=== PATIENT | male | born 1970 | race Caucasian/White ===

== ENCOUNTER → 2024-07-05 11:30 | Outpatient (REF) | payer OTHER, SELFPAY | LOC: PAVMRI 11:30 | PROVIDERS: ATTENDING PHYSICIAN Physical Medicine & Rehabilitation; FAMILY PHYSICIAN Family Medicine | DX: M54.12 Radiculopathy, cervical region (principal) | CPT/HCPCS: 72141 ==

== ENCOUNTER → 2024-08-05 18:40 | Outpatient (REF) | payer OTHER, SELFPAY | LOC: RAD 18:40 | PROVIDERS: ATTENDING PHYSICIAN Physical Medicine & Rehabilitation; FAMILY PHYSICIAN Family Medicine | DX: M25.561 Pain in right knee (principal) | CPT/HCPCS: 73560 ==

== ENCOUNTER → 2024-08-28 10:30 | Outpatient (REF) | payer OTHER, SELFPAY | LOC: RAD 10:30 | PROVIDERS: ATTENDING PHYSICIAN Internal Medicine Cardiovascular Disease; FAMILY PHYSICIAN Family Medicine | DX: I48.0 Paroxysmal atrial fibrillation (principal); R00.1 Bradycardia, unspecified; R03.1 Nonspecific low blood-pressure reading; R05.8 Other specified cough; R63.4 Abnormal weight loss | CPT/HCPCS: 36415; 71046 ==

== ENCOUNTER → 2024-09-25 15:43 | Outpatient (REF) | payer OTHER, SELFPAY | LOC: RAD 15:43 | PROVIDERS: ATTENDING PHYSICIAN Family Medicine; FAMILY PHYSICIAN Family Medicine | DX: R05.3 Chronic cough (principal); R63.4 Abnormal weight loss; R00.1 Bradycardia, unspecified; R03.1 Nonspecific low blood-pressure reading; R05.8 Other specified cough; Z87.891 Personal history of nicotine dependence; R06.2 Wheezing | CPT/HCPCS: 71270; 93306; Q9967 ==

== ENCOUNTER → 2024-11-05 11:45 | Outpatient (REF) | payer OTHER, SELFPAY | LOC: DHSLP 11:45 | PROVIDERS: ATTENDING PHYSICIAN Internal Medicine Critical Care Medicine; FAMILY PHYSICIAN Family Medicine | DX: G47.19 Other hypersomnia (principal); R06.83 Snoring | CPT/HCPCS: 95800 ==

== ENCOUNTER → 2025-01-22 11:36 | Outpatient (REF) | payer OTHER, SELFPAY | LOC: HWRCS 11:36 | PROVIDERS: ATTENDING PHYSICIAN Internal Medicine Cardiovascular Disease; FAMILY PHYSICIAN Family Medicine | DX: I25.10 Atherosclerotic heart disease of native coronary artery without angina pectoris (principal); R07.2 Precordial pain; E78.2 Mixed hyperlipidemia | CPT/HCPCS: 78452; 93017; A9500; J2785 ==